=== PATIENT | female | born 1945 | race Caucasian/White ===

== ENCOUNTER → 2016-09-27 | Day surgery (SDC) | payer OTHER, BC ==
[2016-09-09 08:52] VITALS: Ht 167.6 cm; Wt 86.4 kg
[~2016-09-27] VITALS: Ht 167.6 cm; Wt 86.4 kg
[~2016-09-27] MED LIST: 500ML BSS 0.3ML EPI 1:1000PF IRRIG ONE; ACETAMINOPHEN 325 MG TAB PO PRN; AMVISC PLUS 0.8ML SYRINGE INT OCU ONE; ATEN50TA8 PO; ATROPINE SULFATE 0.1 MG/ML 5ML SYR IV PRN; BROM0.07 OPL; BSS FLUSH ONE; CALCTAB5 PO; CHOL20002 PO; COEN1CAP17 PO; EpHEDrine SULFATE INJ 50 MG/ML AMP IV PRN; EpINEphrine INJ 1MG/ML AMP 1 MG/ML AMP ONE; INSU100I SC; INSUINJ4 SQ; LACTATED RINGER'S 1000ML 500 ML IV SCH; LIDOCAINE 3.5% OPH GEL PER APPLICATION CHARGE ONE; LIDOCAINE HCL 1% MPF 2 ML VIAL ONE; LISI20TA3 PO; MAGN250T12 PO; METF-384 PO; MIDAZOLAM HCL 1 MG/ML 2ML VIAL ONE; OCUCOAT 1 ML SOLN IO ONE; OMEG10007 PO; ONDANSETRON INJ 2 MG/ML 2 ML VIAL IV PRN; PARO1TAB27 PO; POVIDONE-IODINE OP SOLN 30 ML BTL ONE; PRED1SUS3 OPL; PROPARACAINE 0.5% OP SOLN PER DROP CHARGE OPR SCH; SIMV20TA2 PO; TOBRAMYCIN/DEXAMETHASONE OPH OINT PER APPLN CHARGE ONE
[2016-09-27] MEDS: PHENYLEPHRINE HCL 2.5% OP SOLN PER DROP CHARGE OPR SCH ×2 (07:38→07:43)
[2016-09-27] MEDS: TROPICAMIDE 1% OP SOLN PER DROP CHARGE OPR SCH ×2 (07:39→07:44)
[2016-09-27] MEDS: CYCLOPENTOLATE HCL 1% OP SOLN PER DROP CHARGE OPR SCH ×2 (07:40→07:45)
[2016-09-27] MEDS: KETOROLAC 0.5% OP SOLN PER DROP CHARGE OPR SCH ×2 (07:41→07:46)
[2016-09-27] MEDS: GATIFLOXACIN OP SOLN PER DROP CHARGE OPR SCH ×2 (07:42→07:52)
--- NOTE | 2016-09-27 08:00 | History & Physical Bridge - [place] ---
H&P Re-Evaluation Bridge Note: I have examined the patient, reviewed the History & Physical and in the interval since the performance of the History & Physical I have noted the following changes of clinical significance: No changes noted
--- NOTE | 2016-09-27 08:46 | Discharge Instructions-SurgCtr ---
Discharge Instructions Visit Reason for Visit: Cataract Right Eye Discharge Discharge Diagnosis / Problem: cataract Discharge Goals Goal(s): Improve function Medications Stopped Medications Name(s): metformin stopped x 2 days. Activity Recommendations Activity Limitations: per Instructions/Follow-up section Anesthesia . Post Anesthesia Instructions: If you have had General Anesthesia or IV Sedation: * Do not drive today. * Resume driving when surgeon permits. * Do not make important decisions or sign legal documents today. * Call surgeon for: 1. Temperature elevations greater than 101 degrees F. 2. Uncontrollable pain. 3. Excessive bleeding. 4. Persistent nausea and vomiting. 5. Medication intolerance (nausea, vomiting or rash). * For nausea and vomiting use only clear liquids such as: tea, soda, bouillon until nausea subsides, then gradually increase diet as tolerated. * If you have any concerns or questions, call your surgeon's office. If physician is unavailable and it is an emergency, call 911 or go to the nearest emergency room. . Instructions / Follow-Up Instructions / Follow-Up ACTIVITY RECOMMENDATIONS: * No strenuous lifting, jogging or running for 4 days * No swimming or yard work for 1 week. * Limited bending is permitted, such as putting on shoes. RETURN TO SCHOOL/WORK: No work until seen by physician in office. MEDICATIONS: Resume previous medications unless instructed otherwise by your surgeon. This includes eye drops for glaucoma. Zymaxid/Gatifloxacin (adair cap) - one drop every 2 hours until bedtime Nevanac/Ilevro/Prolensa/Ketorolac (torres cap) - one drop every 4 hours until bedtime Prednisolone (white/pink cap, SHAKE WELL) - one drop every 2 hours until bedtime Starting tomorrow - all 3 drops every 4 hours until seen in the office Optive drops - as needed for discomfort SPECIAL CARE INSTRUCTIONS: * Wear eyeshield when sleeping, for four nights. * You may wear your own glasses or sunglasses while awake. * You may read or watch TV * You may shower and wash your face, but be gentle around the eye and pat dry. * Blurry vision and mild irritation are normal. * Call office if pain is more severe or vision becomes dark at . FOLLOW UP VISIT: Follow-up with Dr Bui tomorrow. Diet Recommendations Home Diet: resume previous diet Procedures Procedures Performed: Right Cataract Phacoemulsification With Intraocular Lens Implant Pending Studies Studies pending at discharge: no Medical Emergencies . Who to Call and When: Medical Emergencies: If at any time you feel your situation is an emergency, please call 911 immediately. . Non-Emergent Contact Non-Emergency issues call your: He[facility] Se[facility] Pounder . . "Provider Documentation" section prepared by Atif Bui.
--- NOTE | 2016-09-27 08:46 | [facility] Operative Report ---
Operative Report 1. PREOPERATIVE DIAGNOSIS: Cataract of the right eye. 2. POSTOPERATIVE DIAGNOSIS: Same. 3. PROCEDURE: Phacoemulsification with intraocular lens implantation of the right eye. SURGEON: Dr. Atif Bui. ANESTHESIA: Topical Lidocaine gel, 1% Non- Preserved intracameral Lidocaine, and monitored intravenous sedation. INDICATIONS FOR THE PROCEDURE: The patient is a 71 - year-old female with a history of cataract of the right eye causing significant visual impairment. The details of the proposed procedure were explained to the patient who asked appropriate questions and following discussion of all risks, benefits and alternatives agreed to have the procedure done. 4. OPERATION AND FINDINGS: DESCRIPTION OF PROCEDURE: After informed consent was obtained, the patient was brought to the Operating Room at the [facility]. The patient was placed in a supine position and then the right eye was prepped and draped in the usual sterile fashion for intraocular surgery. A drop of topical Lidocaine gel was placed in the operative eye. A wire lid speculum was then placed in the fornices. A corneal paracentesis was then created temporally. The Non-Preserved Lidocaine was then instilled into the anterior chamber. The anterior chamber was then pressurized with viscoelastic. A 2.0 mm clear corneal incision was then created temporally. A cystotome was inserted into the anterior chamber and used to create a tear in the anterior lens capsule. This capsular tear was then used to create a small flap and the flap was dragged in a counterclockwise direction in order to create a continuous curvilinear capsulorrhexis. Hydrodissection was accomplished with balanced salt solution. Phacoemulsification of the lens nucleus was then performed in a standard [id number]-bespfzd technique. The phaco time was 24 seconds with an average power of 7 %. The remaining cortical material was removed using irrigation aspiration. The capsular bag was then filled with viscoelastic. A [employer]ch [employer] Lomb MI60L +22.0 diopters lens was then loaded into the injector and injected into the capsular bag. The remaining viscoelastic was removed with the irrigation aspiration handpiece. The wound was hydrated and then checked and found to be watertight. The intraocular pressure was checked and found to be adequate. The wire lid speculum was removed and the patient's face was cleaned and dried. TobraDex ointment was placed in the inferior fornix. The patient was discharged to the Recovery Room having tolerated the procedure well. There were no complications. The patient will be seen tomorrow in the office for follow-up. I attest to the content of the Intraoperative Record and any orders documented therein. Any exceptions are noted below.
[2016-09-27 08:55] VITALS: TEMP 36.3
[2016-09-27 09:12] VITALS: BP 135/81; PULSE 58; O2SAT 96
--- NOTE | 2016-09-27 09:29 | Anesthesia Progress Nt - [facility] ---
Anesthesia Post Op Note Date & Time Sep 27, 2016 at 09:29 Vital Signs Pain Intensity: 0 Vital Signs Past 12 Hours Date Time Temp Pulse Resp B/P Pulse Ox O2 Delivery O2 Flow Rate FiO2 09/27/16 09:12 58 20 135/81 96 Room Air 09/27/16 08:55 36.3 57 20 138/74 97 Room Air 09/27/16 07:26 36.6 66 16 134/73 98 Room Air Notes Mental Status: alert / awake / arousable, participated in evaluation Pt Amnestic to Procedure: Yes Nausea / Vomiting: adequately controlled Pain: adequately controlled Airway Patency, RR, SpO2: stable & adequate BP & HR: stable & adequate Hydration State: stable & adequate Anesthetic Complications: no major complications apparent
== END | disposition home or self-care (01) ==
LOC: X.SURG 07:18
PROVIDERS: ATTEND Ophthalmology
DX: H26.9 Unspecified cataract (principal); I10 Essential (primary) hypertension; E11.9 Type 2 diabetes mellitus without complications; Z68.30 Body mass index [BMI] 30.0-30.9, adult; Z98.42 Cataract extraction status, left eye; F41.9 Anxiety disorder, unspecified; Z98.890 Other specified postprocedural states; Z83.3 Family history of diabetes mellitus; Z83.79 Family history of other diseases of the digestive system; Z83.49 Family history of other endocrine, nutritional and metabolic diseases

== ENCOUNTER → 2016-10-10 | Outpatient (CLI) | payer OTHER, BC ==
[~2016-10-10] MED LIST changes: -500ML BSS 0.3ML EPI 1:1000PF IRRIG ONE; -ACETAMINOPHEN 325 MG TAB PO PRN; -AMVISC PLUS 0.8ML SYRINGE INT OCU ONE; -ATROPINE SULFATE 0.1 MG/ML 5ML SYR IV PRN; -BSS FLUSH ONE; -EpHEDrine SULFATE INJ 50 MG/ML AMP IV PRN; -EpINEphrine INJ 1MG/ML AMP 1 MG/ML AMP ONE; -LACTATED RINGER'S 1000ML 500 ML IV SCH; -LIDOCAINE 3.5% OPH GEL PER APPLICATION CHARGE ONE; -LIDOCAINE HCL 1% MPF 2 ML VIAL ONE; -MIDAZOLAM HCL 1 MG/ML 2ML VIAL ONE; -OCUCOAT 1 ML SOLN IO ONE; -ONDANSETRON INJ 2 MG/ML 2 ML VIAL IV PRN; -POVIDONE-IODINE OP SOLN 30 ML BTL ONE; -PROPARACAINE 0.5% OP SOLN PER DROP CHARGE OPR SCH; -TOBRAMYCIN/DEXAMETHASONE OPH OINT PER APPLN CHARGE ONE
== END | disposition home or self-care (01) ==
LOC: C.RDSM 16:15
PROVIDERS: ATTEND Family Medicine
DX: M79.644 Pain in right finger(s) (principal)

== ENCOUNTER → 2016-11-22 | Outpatient (CLI) | payer OTHER, BC ==
--- NOTE | 2016-11-23 12:37 | MAMMOGRAPHY REPORT ---
BILATERAL DIGITAL SCREENING MAMMOGRAM WITH CAD: 11/22/2016 CLINICAL HISTORY: Routine screening. Patient has no complaints. TECHNIQUE: Bilateral CC, MLO and repeat right MLO views were obtained. Current study was also evalu ated with a Computer Aided Detection (CAD) system. COMPARISON: Comparison is made to exams dated: 11/19/2015 mammogram, 11/18/2014 mammogram, 09/30/2013 m ammogram, 09/13/2012 mammogram, 09/12/2011 mammogram, and 09/10/2010 mammogram - [facility]. BREAST COMPOSITION: The tissue of both breasts is heterogeneously dense, which may obscure small ma sses. FINDINGS: The biopsy marker in the far posterior and lateral right breast is not visualized on these images. There is a stable leonardo-shaped biopsy marker in the upper outer middle one third of the left breast. There are benign coarse calcifications and grouped benign-appearing microcalcifications, s table bilaterally. Mild vascular calcification. No suspicious new mass, architectural distortion o r cluster of microcalcifications is seen. IMPRESSION: ACR BI-RADS CATEGORY 1: NEGATIVE There is no mammographic evidence of malignancy. A 1 year screening mammogram is recommended. The p atient will receive written notification of the results. Approximately 10% of breast cancers are not detected with mammography. A negative mammographic repor t should not delay biopsy if a clinically suggestive mass is present. Rhea Arias M.D. ay/:11/22/2016 16:35:06 Jig Worker: Mendy TAFOYA)(Nieves), [facility] letter sent: Normal 1/2 BI-RADS Code: ACR BI-RADS Category 1: Negative
== END | disposition home or self-care (01) ==
LOC: C.MAMM 11:22
PROVIDERS: ATTEND Obstetrics & Gynecology
DX: Z12.31 Encounter for screening mammogram for malignant neoplasm of breast (principal)

== ENCOUNTER → 2016-12-21 | Outpatient (CLI) | payer OTHER, BC ==
[2016-12-22 06:13] LABS: ESTIMATED AVERAGE GLUCOSE 151 mg/dl; HA1C FLAG Normal (Normal)
== END | disposition home or self-care (01) ==
LOC: C.LAB1850 14:18
PROVIDERS: ATTEND Physician Assistant
DX: E11.9 Type 2 diabetes mellitus without complications (principal)

== ENCOUNTER → 2017-03-24 | Outpatient (CLI) | payer OTHER, BC ==
[2017-03-24 12:17] LABS: ALT/SGPT 24 U/L (12-78); BLOOD UREA NITROGEN 12 mg/dl (7-18); BUN/CREATININE RATIO 17.1 (10-20); CALCIUM 9.2 mg/dl (8.5-10.1); CARBON DIOXIDE 26 mmol/L (21-32); CHLORIDE 106 mmol/L (98-107); CHOLESTEROL 124 mg/dl (0-200); CREATININE 0.69 mg/dl (0.60-1.20); GLUCOSE 152 mg/dl (70-99); POTASSIUM 4.4 mmol/L (3.5-5.1); SODIUM 140 mmol/L (136-145)
[2017-03-24 12:28] LABS: ALB/GLOB RATIO 0.9 (0.9-2); ALKALINE PHOSPHATASE 79 U/L (45-117); AST/SGOT 18 U/L (15-37); CHOLESTEROL/HDL RATIO 2.2; HDL CHOLESTEROL 56 mg/dl; LDL CHOLESTEROL CALCULATED 47 mg/dl; TRIGLYCERIDES 104 mg/dl (0-150); VERY LOW DENSITY LIPOPROT CALC 21 mg/dl
[2017-03-24 12:47] LABS: ESTIMATED AVERAGE GLUCOSE 146 mg/dl; HA1C FLAG Normal (Normal)
== END | disposition home or self-care (01) ==
LOC: C.LAB1850 09:56
PROVIDERS: ATTEND Internal Medicine
DX: Z00.00 Encounter for general adult medical examination without abnormal findings (principal); I10 Essential (primary) hypertension; E11.9 Type 2 diabetes mellitus without complications; E78.5 Hyperlipidemia, unspecified; M85.80 Other specified disorders of bone density and structure, unspecified site; E55.9 Vitamin D deficiency, unspecified; E66.9 Obesity, unspecified

== ENCOUNTER → 2017-06-28 | Outpatient (CLI) | payer OTHER, BC | LOC: C.LAB1850 15:19 | PROVIDERS: ATTEND Physician Assistant | DX: E11.9 Type 2 diabetes mellitus without complications (principal) ==

== ENCOUNTER → 2017-06-30 | Outpatient (CLI) | payer OTHER, BC ==
[2017-06-30 17:48] LABS: RATIO 12.8 mcg/mg (0-30.0)
== END | disposition home or self-care (01) ==
LOC: C.LAB1850 15:23
PROVIDERS: ATTEND Nurse Practitioner Adult Health
DX: E11.9 Type 2 diabetes mellitus without complications (principal)

== ENCOUNTER → 2017-10-13 | Outpatient (CLI) | payer OTHER, BC ==
[2017-10-13 13:54] LABS: ESTIMATED AVERAGE GLUCOSE 137 mg/dl; HA1C FLAG Normal (Normal)
[2017-10-13 13:54] LABS: HEMOGLOBIN A1C 6.4 % (4.5-5.6)
== END | disposition home or self-care (01) ==
LOC: C.LABBC 11:33
DX: E11.9 Type 2 diabetes mellitus without complications (principal)

== ENCOUNTER → 2017-11-02 | Outpatient (CLI) | payer OTHER, BC | END | disposition home or self-care (01) | LOC: C.MAMM 14:16 | PROVIDERS: ATTEND Internal Medicine | DX: M85.88 Other specified disorders of bone density and structure, other site (principal) ==

== ENCOUNTER → 2017-11-23 | Outpatient (CLI) | payer OTHER, BC ==
--- NOTE | 2017-11-23 15:19 | MAMMOGRAPHY REPORT ---
BILATERAL DIGITAL SCREENING MAMMOGRAM TOMOSYNTHESIS WITH CAD: 11/23/2017 CLINICAL HISTORY: Routine screening. TECHNIQUE: Breast tomosynthesis in addition to standard 2D mammography was performed. Current study was also evaluated with a Computer Aided Detection (CAD) system. COMPARISON: Comparison is made to exams dated: 11/22/2016 mammogram, 11/19/2015 mammogram, 11/18/2014 m ammogram, 09/13/2013 mammogram, 09/13/2012 mammogram, and 09/12/2011 mammogram - [facility]. BREAST COMPOSITION: The tissue of both breasts is heterogeneously dense, which may obscure small mas ses. FINDINGS: No suspicious masses, calcifications, or areas of architectural distortion are noted in ei ther breast. There has been no significant interval change compared to prior exams. Bilateral asymme tries and scattered bilateral benign-appearing calcifications are not significantly changed. A biops y marker clip is again noted overlying the right pectoralis muscle on the MLO view. IMPRESSION: ACR BI-RADS CATEGORY 2: BENIGN There is no mammographic evidence of malignancy. A 1 year screening mammogram is recommended. The pa tient will receive written notification of the results. Approximately 10% of breast cancers are not detected with mammography. A negative mammographic report should not delay biopsy if a clinically suggestive mass is present. Yarely Beaver M.D. ah/:11/23/2017 12:46:30 Metrologist: Jamshid TAFOYA)(Nieves), [facility] letter sent: Normal 1/2 BI-RADS Code: ACR BI-RADS Category 2: Benign
== END | disposition home or self-care (01) ==
LOC: C.MAMM 10:53
PROVIDERS: ATTEND Obstetrics & Gynecology
DX: Z12.31 Encounter for screening mammogram for malignant neoplasm of breast (principal)

== ENCOUNTER 2024-10-11 06:36 | Observation (INO) ==
--- NOTE | 2024-09-03 10:38 | PAT Medication Instructions ---
Medication Instructions Date of Service September 03, 2024 Home Medications Medication Instructions Recorded BD Ultra-Fine Mini Pen Needle 31 #400 ea 09/22/23 gauge x 3/16" (pen needle, diabetic) simvastatin 20 mg tablet 20 mg PO QPM #90 tabs 12/27/23 tirzepatide 7.5 mg/0.5 mL 7.5 mg (0.5 mL) subcut Q7D #6 mL 04/26/24 subcutaneous pen injector (Mounjaro) blood sugar diagnostic (Contour #100 ea 05/02/24 Next Test Strips) lancets (Microlet Lancet) #100 ea 05/02/24 insulin glargine 100 unit/mL (3 36 unit (0.36 mL) subcut HS 90 05/03/24 mL) subcutaneous pen (Lantus days #45 mL Solostar U-100 Insulin) calcium 600 mg (as carbonate)-vitamin D3 5 mcg (200 unit) tablet 1 tab PO QAM cholecalciferol (vitamin D3) 125 mcg (5,000 unit) tablet 5,000 units PO QAM coenzyme Q10 100 mg capsule 100 mg PO QAM krill oil 500 mg capsule 500 mg PO QAM docusate sodium 100 mg capsule (Colace) 100 mg PO BID PRN simvastatin 20 mg tablet 20 mg PO QPM fluocinonide 0.05 % topical cream 1 applic topical DAILY PRN tirzepatide 7.5 mg/0.5 mL subcutaneous pen injector (Mignonro) 7.5 mg (0.5 mL) subcut Q7D insulin glargine 100 unit/mL (3 mL) subcutaneous pen (Lantus Solostar U-100 Insulin) 36 unit (0.36 mL) subcut HS antiarthritic combination no.2 900 mg tablet (glucosamine-chondroitin) 900 mg PO QAM Turmeric 1,000 mg PO QAM alendronate 70 mg tablet (Fosamax) 70 mg PO WK ascorbic acid (vitamin C) 500 mg tablet (Vitamin C) 1,000 mg PO QAM atenolol 50 mg tablet 50 mg PO HS cyanocobalamin (vitamin B-12) 1,000 mcg tablet (Vitamin B-12) 1,000 mcg PO QAM insulin lispro 100 unit/mL subcutaneous pen (Humalog KwikPen (U-100) Insulin) 14 - 18 unit subcut QAM lisinopril 20 mg tablet 20 mg PO QAM oxybutynin chloride 5 mg tablet,extended release 24 hr 5 mg PO QAM paroxetine HCl 20 mg tablet 20 mg PO HS STOP 7 days before surgery tirzepatide 7.5 mg/0.5 mL subcutaneous pen injector (Mounjaro) 7.5 mg (0.5 mL) subcut Q7D STOP taking 2 weeks before surgery (or as soon as possible if surgery is within 2 weeks) coenzyme Q10 100 mg capsule 100 mg PO QAM krill oil 500 mg capsule 500 mg PO QAM antiarthritic combination no.2 900 mg tablet (glucosamine-chondroitin) 900 mg PO QAM Turmeric 1,000 mg PO QAM STOP taking 24 hours before surgery fluocinonide 0.05 % topical cream 1 applic topical DAILY PRN DO NOT take the morning of surgery calcium 600 mg (as carbonate)-vitamin D3 5 mcg (200 unit) tablet 1 tab PO QAM cholecalciferol (vitamin D3) 125 mcg (5,000 unit) tablet 5,000 units PO QAM docusate sodium 100 mg capsule (Colace) 100 mg PO BID PRN alendronate 70 mg tablet (Fosamax) 70 mg PO WK ascorbic acid (vitamin C) 500 mg tablet (Vitamin C) 1,000 mg PO QAM cyanocobalamin (vitamin B-12) 1,000 mcg tablet (Vitamin B-12) 1,000 mcg PO QAM insulin lispro 100 unit/mL subcutaneous pen (Humalog KwikPen (U-100) Insulin) 14 - 18 unit subcut QAM lisinopril 20 mg tablet 20 mg PO QAM oxybutynin chloride 5 mg tablet,extended release 24 hr 5 mg PO QAM Take evening before surgery docusate sodium 100 mg capsule (Colace) 100 mg PO BID PRN(if needed) simvastatin 20 mg tablet 20 mg PO QPM insulin glargine 100 unit/mL (3 mL) subcutaneous pen (Lantus Solostar U-100 Insulin) 36 unit (0.36 mL) subcut HS atenolol 50 mg tablet 50 mg PO HS paroxetine HCl 20 mg tablet 20 mg PO HS Other Notes NOTHING TO EAT OR DRINK AFTER MIDNIGHT. If you have any questions please call us at [phone] or [phone] or [phone] or [phone]
--- NOTE | 2024-09-10 11:33 | Anesthesiology Consultation ---
Date of Service September 10, 2024 Assessment & Plan (1) Encounter for pre-operative examination: Chart Review Chart Review: Acceptable Risk for Surgery and Patient seen in Pre Admission Testing - Check BSG AM DOS Dexcom monitor to abdominal area (surgeon's office made aware) - Mounjaro instructions: Patient takes on (Sundays). Patient informed at PAT visit to stop 7 days prior to surgery- voiced understanding. Patient advised to discuss with prescriber. Last dose of Mounjaro scheduled for 09/29/24- will be off Mounjaro x 12 days by DOS on 10/11/24 - Patient is NOT an ideal OPJ candidate (currently 23 hour obs) Per PAT appt on 09/10/24, no recent illness/disease exposures, illness related symptoms, or recent illness/disease positive tests. Will leave to surgeon's discretion if preop Covid testing needed Teaching & Discussion Pre-Anesthesia Teaching/Discussion Notes: Instructed NPO after midnight before surgery,except medications with 15 cc of water. Medication instructions provided according to the PAT guidelines. History Surgery Operation Date: 10/11/24 10:55 Proposed Procedures p Left Total Knee Arthroplasty - Pierce Douglas, Height/Weight Height: 5 ft 6 in Weight: 84.2 kg Allergies Allergy/AdvReac Type Severity Reaction Status Date / Time acarbose Allergy Intermediate Hives Verified 09/02/24 15:37 niacin Allergy Intermediate HIVES Verified 09/02/24 15:37 adhesive Allergy Mild ITCHING/ARNULFO Verified 09/02/24 15:37 H pollen extracts Allergy Mild sneezing, Verified 09/02/24 15:37 watery eyes Medications Home Medications Medication Instructions Recorded Confirmed Last Taken calcium 600 mg (as 1 tab PO QAM 06/05/19 09/02/24 06/03/23 carbonate)-vitamin D3 5 mcg (200 unit) tablet cholecalciferol (vitamin D3) 125 5,000 units PO QAM 06/05/19 09/02/24 06/03/23 mcg (5,000 unit) tablet coenzyme Q10 100 mg capsule 100 mg PO QAM 06/05/19 09/02/24 06/03/23 krill oil 500 mg capsule 500 mg PO QAM 06/05/19 09/02/24 06/03/23 blood-glucose meter,continuous #1 ea 03/18/21 07/05/24 Unknown (Dexcom G6 Theatrical Performer) blood-glucose sensor (Dexcom G6 #3 ea 03/18/21 07/05/24 Unknown Sensor device) blood-glucose transmitter (Dexcom #1 ea 03/18/21 07/05/24 Unknown G6 Transmitter device) docusate sodium 100 mg capsule 100 mg PO BID PRN Constipation 06/08/23 09/02/24 Unknown (Colace) BD Ultra-Fine Mini Pen Needle 31 #400 ea 09/22/23 07/05/24 Unknown gauge x 3/16" (pen needle, diabetic) simvastatin 20 mg tablet 20 mg PO QPM #90 tabs 12/27/23 09/02/24 Unknown fluocinonide 0.05 % topical cream 1 applic topical DAILY PRN Rash 02/09/24 09/02/24 Unknown tirzepatide 7.5 mg/0.5 mL 7.5 mg (0.5 mL) subcut Q7D #6 mL 04/26/24 09/02/24 09/01/24 subcutaneous pen injector (Luz) blood sugar diagnostic (Contour #100 ea 05/02/24 07/05/24 Unknown Next Test Strips) lancets (Microlet Lancet) #100 ea 05/02/24 07/05/24 Unknown insulin glargine 100 unit/mL (3 36 unit (0.36 mL) subcut HS 90 05/03/24 09/02/24 Unknown mL) subcutaneous pen (Lantus days #45 mL Solostar U-100 Insulin) antiarthritic combination no.2 900 900 mg PO QAM 06/04/24 09/02/24 Unknown mg tablet (glucosamine-chondroitin) Turmeric 1,000 mg PO QAM 09/02/24 09/02/24 Unknown ascorbic acid (vitamin C) 500 mg 1,000 mg PO QAM 09/02/24 09/02/24 Unknown tablet (Vitamin C) atenolol 50 mg tablet 50 mg PO HS 09/02/24 09/02/24 Unknown cyanocobalamin (vitamin B-12) 1,000 mcg PO QAM 09/02/24 09/02/24 Unknown 1,000 mcg tablet (Vitamin B-12) insulin lispro 100 unit/mL 14 - 18 unit subcut QAM 09/02/24 09/02/24 Unknown subcutaneous pen (Humalog KwikPen (U-100) Insulin) lisinopril 20 mg tablet 20 mg PO QPM 09/02/24 09/10/24 Unknown oxybutynin chloride 5 mg 5 mg PO QAM 09/02/24 09/02/24 Unknown tablet,extended release 24 hr paroxetine HCl 20 mg tablet 20 mg PO HS 09/02/24 09/02/24 Unknown alendronate 70 mg tablet (Fosamax) 70 mg PO WK #12 tabs 09/06/24 Unknown Past Medical History Medical History Agoraphobia without panic disorder well controlled with Paxil Cerebral vascular disease Chronic small vessel disease per 2022 work up and neuro vascular evaluation - follows with neuro PRN; no definite CVA - on ASA Diabetes mellitus, type [address]- rotated around abdominal area Diabetic peripheral neuropathy Dyslipidemia patient states statin more so due to diabetes Hypertension patient states lisinopril more for diabetes Osteoarthritis Osteopenia Overactive bladder Sleep apnea cpap Temporomandibular joint disorder not a current issue, no bite block no recent clicking, no locking Exercise / Class Metabolic Activity III < 4 Walking/Shop/Light housework (no chest pain or SOB with flat surface ambulation ) Past Family History Family History Father Seasonal allergies Heart disease Myocardial infarction Mother Liver disease Diabetes Osteoporosis Arthritis Hyperlipidemia Hypothyroidism Hypertension Obesity Sister Arthritis Brother Diabetes Peripheral vascular disease Daughter Family history of reaction to anesthesia vomiting and confusion Other Gestational diabetes Denies family history of Ovarian cancer Prostate cancer Breast cancer Colorectal cancer Past Surgical History Surgical History H/O hand surgery incision tendon sheath of a finger History of bilateral cataract extraction History of breast biopsy benign History of carpal tunnel release of both wrists History of knee surgery bilateral knees--meniscus repair History of laparoscopic appendectomy (08/23/22) Laparoscopic Appendectomy(Not Applicable) - Juan Harrington DO History of tooth extraction partial upper Hx of colonoscopy Status post trigger finger release x3 Past Anesthesia History No Hx of Anesthesia Complications and No Family Hx of Anesthesia Complications (with exception to daughter - PONV x 2 days ) History of PONV No Hx of PONV and No Hx of Motion Sickness Social History Smoking Status: Never smoker Do You Dip or Chew Tobacco: No Hx Alcohol Use: No Hx Substance Use: No substance use type: does not use Review of Systems Patient denies chest pain, shortness of breath, dyspnea on exertion, reflux, cough, wheezing, palpitations. No hx of seizures, stroke, ME. No hx of blood clots or blood transfusions Physical Exam Vital Signs VITALS BP 147/74 P 73 TEMP 98.0 SP02 97% RESP 16 Constitutional no acute distress ENMT Mouth: + small oral opening; no TMJ clicking Thyromental Distance: < 3.5 Finger Breadths (3.0) Mallampati Class: III Top partial denture Neck + limited neck extension (mild) Respiratory normal respiratory effort; no respiratory distress Auscultation: lungs clear to auscultation bilaterally; no wheezes Cardiovascular Rate/Rhythm: regular rate and regular rhythm Heart Sounds: no murmur Vessels: no carotid bruit Musculoskeletal Spine: no pain with cervical ROM Extremities: extremities normal to inspection Psychiatric Orientation: alert Lab Results Anesthesia Preop Results Results Anesthesia Widget: WBC 7.39 K/ul (4.8-10.8) 09/10/24 Hgb 14.2 g/dl (12.0-16.0) 09/10/24 Hct 43.1 % (37.0-47.0) 09/10/24 Plt 223 K/uL (130-400) 09/10/24 Na 140 mmol/L (136-145) 09/10/24 K 4.0 mmol/L (3.5-5.1) 09/10/24 Cl 102 mmol/L (98-107) 09/10/24 CO2 30 mmol/L (21-32) 09/10/24 BUN 13 mg/dl (6-23) 09/10/24 Creat 0.69 mg/dl (0.6-1.2) 09/10/24 Glucose Level 124 mg/dl (70-99(Fasting)) H 09/10/24 PT 11.0 Seconds (9.0-12.0) 09/10/24 PTT 25 Seconds (21-31) 09/10/24 INR 1.0 (0.9-1.1) 09/10/24 HA1c 6.2 % (4.5-5.6) H 09/10/24 Blood Type A Positive 09/10/24 Antibody Screen NEGATIVE 09/10/24 Testing Electrocardiogram Date: 09/10/24 Findings: + NSR @ (70bpm) Normal EKG per cardio Chest X-Ray Date: 07/05/24 Findings: + NAD FINDINGS: PA and lateral chest radiographs are correlated with chest CT dated 06/03/2023. The cardiomediastinal silhouette is unremarkable noting atherosclerotic calcification of the thoracic aorta. Chronic interstitial thickening is similar to previous. There is bibasilar scarring/atelectasis. No airspace consolidation or pleural effusion is identified. There is no pneumothorax. The skeletal structures are osteopenic. There are chronic/healed right-sided rib fractures. Degenerative change is noted in the shoulders and spine Echocardiogram Date: 06/05/23 EF: 50-54% LV Function: normal RWMA: + none ((by limited analysis- all LV segments are not well visualized) ) Other Findings: + diastolic dysfunction (Grade I ) Valvular Disease: + no significant valvular disease ((although heart valves not well visualized)) RV cavity size is normal. RVSP is qualitatively normal Other Testing MRI of the Brain 06/06/23= Moderate generalized age related cerebral parenchymal atrophy and findings most consistent with moderate chronic small vessel white matter ischemia changes. No additional intracranial abnormalities identified. Vascular Duplex Carotid Bilaterally 06/05/23= <50% stenosis to bilateral ICAs. Antegrade flow to both vertebral arteries
[~2024-10-11 06:36] MED LIST changes: -ATEN50TA8 PO; -BROM0.07 OPL; +BUPIVACAINE 0.25% PF 30 ML VIAL ONE; +BUPIVACAINE 0.5 % 5 MG/1 ML PF 10ML VIAL ONE; -CALCTAB5 PO; -CHOL20002 PO; -COEN1CAP17 PO; +DEXAMETHASONE SOD INJ 4 MG/ML VIAL ONE; +EPINEPHrine INJ 1 MG/ML AMP ONE; -INSU100I SC; -INSUINJ4 SQ; -LISI20TA3 PO; -MAGN250T12 PO; -METF-384 PO; -OMEG10007 PO; -PARO1TAB27 PO; -PRED1SUS3 OPL; -SIMV20TA2 PO
--- NOTE | 2024-10-11 06:38 | History & Physical Bridge Note ---
Date of Service October 11, 2024 History & Physical Bridge Note I have examined the patient, reviewed the History & Physical and in the interval since the performance of the History & Physical I have noted the following changes of clinical significance: no changes noted
[2024-10-11] MEDS ORDERED: MIDAZOLAM HCL 1 MG/ML 2ML VIAL ONE (06:53)
[2024-10-11] MEDS ORDERED: fentaNYL citrate PF 100 MCG/2 ML VIAL ONE (06:53)
[2024-10-11] MEDS ORDERED: ONDANSETRON INJ 2 MG/ML 2 ML VIAL ONE (06:53)
[2024-10-11] MEDS ORDERED: PROPOFOL IV EMULSION 10 MG/ML 20 ML VIAL IV ONE ×2 (06:53→08:59)
[2024-10-11] MEDS ORDERED: PHENYLEPHRINE 100MCG/ML 5ML SYR ONE (06:59)
[2024-10-11] MEDS: dexAMETHasone**PF** 10 MG/ML VIAL IV SCH (07:15)
[2024-10-11] MEDS: LR 500ML BOLUS, THEN 15ML/HR IV SCH (07:15)
[2024-10-11] MEDS: GABAPENTIN 300 MG CAP PO SCH (07:15)
[2024-10-11] MEDS: FAMOTIDINE 20 MG TAB PO SCH (07:15)
[2024-10-11] MEDS: LR 60ML/HR IV SCH (07:15)
[2024-10-11] MEDS: ACETAMINOPHEN 500 MG TAB PO SCH ×2 (07:15→14:07)
--- NOTE | 2024-10-11 07:15 | History & Physical Report ---
Date of Service October 11, 2024 Assessment & Plan (1) Osteoarthritis of left knee: We will proceed with a left total knee arthroplasty. Postoperatively she will be started on aspirin for DVT prophylaxis and kept overnight in the hospital for postop medical management. She plans to use energy physical therapy upon discharge. History of Present Illness Chief Complaint: Osteoarthritis of the left knee Primary Care Provider: Patrica Delcid MD Olga is a pleasant 79-year-old female who has been dealing with chronic increasing left knee pain. X-rays and clinical exam have been diagnostic for advanced arthritis of left knee. After failed conservative treatment, she has elected proceed with a left total knee arthroplasty.. Allergies Allergy/AdvReac Type Severity Reaction Status Date / Time acarbose Allergy Intermediate Hives Verified 10/11/24 06:49 niacin Allergy Intermediate HIVES Verified 10/11/24 06:49 adhesive Allergy Mild ITCHING/ARNULFO Verified 10/11/24 06:49 H pollen extracts Allergy Mild sneezing, Verified 10/11/24 06:49 watery eyes Home Medications Medication Instructions Recorded Confirmed Type calcium 600 mg (as 1 tab PO QAM 06/05/19 10/11/24 History carbonate)-vitamin D3 5 mcg (200 unit) tablet cholecalciferol (vitamin D3) 125 5,000 units PO QAM 06/05/19 10/11/24 History mcg (5,000 unit) tablet coenzyme Q10 100 mg capsule 100 mg PO QAM 06/05/19 10/11/24 History krill oil 500 mg capsule 500 mg PO QAM 06/05/19 10/11/24 History blood-glucose meter,continuous #1 ea 03/18/21 07/05/24 History (Dexcom G6 Awning Craftsman) blood-glucose sensor (Dexcom G6 #3 ea 03/18/21 07/05/24 History Sensor device) blood-glucose transmitter (Dexcom #1 ea 03/18/21 07/05/24 History G6 Transmitter device) docusate sodium 100 mg capsule 100 mg PO BID PRN Constipation 06/08/23 10/11/24 History (Colace) BD Ultra-Fine Mini Pen Needle 31 #400 ea 09/22/23 07/05/24 Rx gauge x 3/16" (pen needle, diabetic) simvastatin 20 mg tablet 20 mg PO QPM #90 tabs 12/27/23 10/11/24 Rx fluocinonide 0.05 % topical cream 1 applic topical DAILY PRN Rash 02/09/24 10/11/24 History tirzepatide 7.5 mg/0.5 mL 7.5 mg (0.5 mL) subcut Q7D #6 mL 04/26/24 10/11/24 Rx subcutaneous pen injector (Luz) blood sugar diagnostic (Contour #100 ea 05/02/24 07/05/24 Rx Next Test Strips) lancets (Microlet Lancet) #100 ea 05/02/24 07/05/24 Rx insulin glargine 100 unit/mL (3 36 unit (0.36 mL) subcut HS 90 05/03/24 10/11/24 Rx mL) subcutaneous pen (Lantus days #45 mL Solostar U-100 Insulin) antiarthritic combination no.2 900 900 mg PO QAM 06/04/24 10/11/24 History mg tablet (glucosamine-chondroitin) ascorbic acid (vitamin C) 500 mg 1,000 mg PO QAM 09/02/24 10/11/24 History tablet (Vitamin C) atenolol 50 mg tablet 50 mg PO HS 09/02/24 10/11/24 History cyanocobalamin (vitamin B-12) 1,000 mcg PO QAM 09/02/24 10/11/24 History 1,000 mcg tablet (Vitamin B-12) insulin lispro 100 unit/mL 14 - 18 unit subcut QAM 09/02/24 10/11/24 History subcutaneous pen (Humalog KwikPen (U-100) Insulin) lisinopril 20 mg tablet 20 mg PO QPM 09/02/24 10/11/24 History oxybutynin chloride 5 mg 5 mg PO QAM 09/02/24 10/11/24 History tablet,extended release 24 hr paroxetine HCl 20 mg tablet (Paxil) 20 mg PO HS 09/02/24 10/11/24 History alendronate 70 mg tablet (Fosamax) 70 mg PO WK #12 tabs 09/06/24 10/11/24 Rx Past Med/Surg History Problem List (Updated 10/11/24 @ 07:16 by Pierce Douglas DO) Osteoarthritis of left knee Obstructive sleep apnea (Chronic) treated with CPAP Overactive bladder (Chronic) Trigger finger of left hand Osteoarthritis of knees, bilateral Mild nonproliferative retinopathy due to secondary diabetes Obesity (BMI 30-39.9) Dyslipidemia (Chronic) Hearing loss (Chronic) Hypertension (Chronic) Insomnia (Chronic) Osteopenia (Chronic) Alendronate started 11/2023 Seborrheic dermatitis (Chronic) Type 2 diabetes mellitus (Chronic) Vitamin D deficiency (Chronic) Medical History Agoraphobia without panic disorder well controlled with Paxil Cerebral vascular disease Chronic small vessel disease per 2022 work up and neuro vascular evaluation - follows with neuro PRN; no definite CVA - on ASA Diabetic peripheral neuropathy Osteopenia Osteoarthritis Overactive bladder Diabetes mellitus, type [address]- rotated around abdominal area Temporomandibular joint disorder not a current issue, no bite block no recent clicking, no locking Dyslipidemia patient states statin more so due to diabetes Hypertension patient states lisinopril more for diabetes Sleep apnea cpap Surgical History History of breast biopsy benign Status post trigger finger release x3 History of carpal tunnel release of both wrists History of tooth extraction partial upper History of bilateral cataract extraction History of laparoscopic appendectomy (08/23/22) Laparoscopic Appendectomy(Not Applicable) - Juan Harrington DO H/O hand surgery incision tendon sheath of a finger Hx of colonoscopy History of knee surgery bilateral knees--meniscus repair Family History Father Seasonal allergies Heart disease Myocardial infarction Mother Liver disease Diabetes Osteoporosis Arthritis Hyperlipidemia Hypothyroidism Hypertension Obesity Sister Arthritis Brother Diabetes Peripheral vascular disease Daughter Family history of reaction to anesthesia vomiting and confusion Other Gestational diabetes Denies family history of Ovarian cancer Prostate cancer Breast cancer Colorectal cancer Social History Smoking Status: Never smoker Second Hand Exposure: No; Do You Dip or Chew Tobacco: No; Tobacco Cessation Education Requested by Patient: No Hx Alcohol Use: No Hx Substance Use: No Preferred Language: Albanian Communication Ability: Effective Visual Impairment: No Limitations Hearing Ability: Hard of Hearing Compress Machine Operator Required: No Beliefs That Will Affect Care: None marital status: Current Living Situation: Spouse current occupational status: retired 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 Physical Exam On physical exam of the left knee, she has a slight varus deformity. Tenderness palpation of the distal medial femoral condyle.. Constitutional WD/WN, vitals as above Eyes PERRL, conjunctivae normal, anicteric sclerae ENMT external ear and nose normal, oropharynx normal Neck trachea midline, no thyromegaly Respiratory normal respiratory effort Cardiovascular RRR, no murmur, no edema Gastrointestinal (Abdomen) normal bowel sounds, soft, nontender, no hepatosplenomegaly Psychiatric A+Ox3, euthymic affect Results & Data Results & Data Laboratory Results . Diagnostic Findings . PG Care Time/CCT Total # of Minutes Spent Total Time Spent with Patient: Total time spent is greater than 50% in coordination of care (as documented) at patient's floor/unit and/or counseling patient: Coding Level of Care Code None Diagnoses Osteoarthritis of left knee M17.12
[2024-10-11] MEDS ORDERED: ePHEDrine sulfate 50 MG/ML AMP IV PRN (07:18)
[2024-10-11] MEDS ORDERED: ONDANSETRON INJ 2 MG/ML 2 ML VIAL IV PRN ×2 (07:18→11:10)
[2024-10-11] MEDS ORDERED: ATROPINE SULFATE 0.1 MG/ML 10ML SYR IV PRN (07:18)
[2024-10-11] MEDS ORDERED: fentaNYL citrate PF 100 MCG/2 ML VIAL IV PRN (07:18)
[2024-10-11] MEDS ORDERED: PROMETHAZINE HCL 6.25 MG in SODIUM CHLORIDE 0.9% 50 ML IV PRN (07:18)
[2024-10-11] MEDS: TRANEXAMIC ACID 1,000 MG **IV Pre-op IV SCH (07:50)
[2024-10-11] MEDS: ceFAZolin 2000MG 2,000 MG/15 ML SYR IV SCH (08:03)
[2024-10-11] MEDS: ROPIV 0.5% 246mg, Ketorolac 30mg, EPINEPHrine 0.5mg in NSS INFIL SCH (08:42)
[2024-10-11] MEDS: ORTHO JOINT ANESTHETIC ONE (08:43)
[2024-10-11] MEDS: TRANEXAMIC ACID 1,000 MG **IV Intra-op IV SCH (09:05)
--- NOTE | 2024-10-11 09:10 | Operative Report ---
PG Post Operative Report Pre & Post Diagnosis Operation Date: 10/11/24 08:00 Pre-Op Diagnosis: Left Knee Osteoarthritis Post-Op Diagnosis: Left Knee Osteoarthritis I identified the patient and participated in the time-out.: Yes Procedure Operation Date: 10/11/24 08:00 Actual Procedures p Left Total Knee Arthroplasty(Left) - Pierce Douglas DO Surgeon Pierce Douglas DO Agricultural Equipment Salesperson Main Coello PA-C Estimated Blood Loss 50 Findings Consistent with Post-Op Diagnosis Specimens Left femoral and tibial bone Description of Procedure Implants used: I used a Daysi Persona total knee arthroplasty system with a size 7 PS narrow femur, D tibia, 28 oval patella, and a size 10 CPS polyethylene bearing. All components were cemented in place with Biomet cement. Olga arrived [facility] for the above procedure. She was seen in the preoperative holding area and the operative extremity was identified and signed. She was given a preoperative antibiotic, TXA, a spinal anesthetic and an adductor nerve block. She was taken back to the operating room and laid on the table in supine position. She was given basic sedation. The operative knee was then prepped and draped in sterile fashion. A timeout was done, and the patient and the operative extremity was properly identified. A midline incision was made directly over the patella. Dissection was taken down to the extensor mechanism. A medial parapatellar arthrotomy was used. The medial retinaculum was released and the fat pad was mostly excised. The knee was flexed and the ACL, PCL, and meniscus were removed. A drill was sent down the center of the femoral canal followed by an intramedullary leonardo. Off that leonardo a distal femoral cutting block was placed. 9 mm was resected off the distal femur at 5 of valgus. A posterior referencing AP sizing guide was then placed on the distal femur. The femur measured to be a size 7. 2 drill holes were placed in 3 of external rotation. A 4-in-1 cutting block was then impacted into place. Anterior, posterior, and chamfer cuts were then made. The proximal tibia was then exposed. An external tibial alignment guide was placed. A tibial cut guide was then anchored in place and the proximal tibia was then resected. The posterior aspect of the knee was then opened up and any additional meniscus fragments and osteophytes were removed. The tibia measured to be a size D. The tibial plate was then placed in the appropriate rotation and the tibia was drilled and punched. Trial components were then placed. I used a size 10 CPS polyethylene insert. The knee was brought through a full range of motion and felt to be stable. The peg holes for the femoral component were then drilled. The patella was then everted and 9 mm was resected off the posterior aspect of the patella. The patella measured to be a size 28 oval. 3 peg holes were then drilled. A trial patella was placed. The knee was once again brought through a full range of motion and felt to be stable. Trial components were then removed. The surrounding soft tissues were injected with 100 cc of an orthopedic pain control cocktail. All components were then cemented into place with Biomet cement. The final polyethylene insert was then snapped into place. Once cement was dry the tourniquet was deflated. H emostasis was obtained. A dilute betadyne lavage was then done for 3 minutes. The joint was then irrigated with normal saline solution. The medial parapatellar arthrotomy was then closed with #1 Vicryl suture. The skin was closed with 2-0 Vicryl, 3-0V lock suture, and larry. A soft compressive dressing was placed. She was then transferred to a hospital bed and taken to the postanesthesia care unit in stable condition. She tolerated the procedure well. Mani Coello PA-C, was present for the entire procedure. He was critical for patient positioning, prepping, draping, retraction exposure, wound closure and application of sterile dressing. I attest to the content of the Intraoperative Record and any orders documented therein. Any exceptions are noted below.
--- NOTE | 2024-10-11 10:01 | XRay Report ---
XR knee LT 1 or 2V routine CLINICAL HISTORY: Surgical Post Op TECHNIQUE: 2 views of the left knee were obtained. Comparison: Comparison is made to knee radiographs 07/24/2013 FINDINGS: Patient is status post total knee arthroplasty with expected postsurgical changes including soft tiss ue swelling and subcutaneous emphysema. No periarticular lucency or hardware fracture is seen. IMPRESSION: Expected postoperative appearance status post placement of total knee arthroplasty. ACT 112: Negative or not required by law. Electronically signed by: Rodo Luciano M.D. 10/11/2024 10:00 AM
[2024-10-11] MEDS ORDERED: traMADol HCL 50 MG TABLET PO PRN (11:10)
[2024-10-11] MEDS ORDERED: METOCLOPRAMIDE HCL INJ 5 MG/ML 2 ML VIAL IV PRN (11:10)
[2024-10-11] MEDS ORDERED: HYDROmorphone INJ 0.5 MG/0.5 ML SYR IV PRN (11:10)
[2024-10-11] MEDS ORDERED: oxyCODONE HCL IR 5 MG TAB (IMMEDIATE RELEASE) PO PRN (11:10)
[2024-10-11] MEDS ORDERED: PHARMACY GLYCEMIC MGMT CONSULT PRN (11:10)
[2024-10-11] MEDS ORDERED: MAGNESIUM HYDROXIDE SUSP 30 ML UDC PO PRN (11:10)
[2024-10-11] MEDS ORDERED: NALOXONE HCL 0.4 MG/1 ML VIAL/CARP IV PRN (11:10)
[2024-10-11] MEDS ORDERED: bisacodyL 10 MG SUPP PR PRN (11:10)
[2024-10-11] MEDS ORDERED: CARBOHYDRATES FOR HYPOGLYCEMIA PO PRN (11:45)
[2024-10-11] MEDS ORDERED: GLUCOSE 40% GEL 15 GM TUBE PO PRN (11:45)
[2024-10-11] MEDS ORDERED: GLUCOSE 10 TAB/TUBE PO PRN (11:45)
[2024-10-11] MEDS ORDERED: GLUCAGON FOR INJ 1 MG VIAL SQ PRN (11:45)
[2024-10-11] MEDS ORDERED: DEXTROSE 50% 50 ML SYRINGE IV PRN (11:45)
--- NOTE | 2024-10-11 11:49 | Anesthesiology Progress Note ---
Date of Service October 11, 2024 Anesthesia Post Procedure Vital Signs Vital Signs: Temp Pulse Resp BP Pulse Ox O2 Del Method O2 Flow Rate 10/11/24 11:30 36.9 C 75 16 119/62 94 Room Air 10/11/24 10:40 69 19 119/57 L 97 Nasal Cannula 2 10/11/24 10:30 36.7 C 69 20 117/59 L 98 Nasal Cannula 2 10/11/24 10:20 68 19 120/54 L 96 Nasal Cannula 2 10/11/24 10:10 72 15 116/55 L 91 Room Air 10/11/24 10:00 70 16 115/58 L 98 Oxymask 5 10/11/24 09:50 71 16 126/59 L 98 Oxymask 5 10/11/24 09:40 77 16 131/73 100 Oxymask 5 10/11/24 09:33 36.8 C 76 13 100/58 L 98 Oxymask 5 10/11/24 07:02 36.9 C 66 20 155/82 H 97 Room Air Pain Intensity Right Knee: Pain Intensity: 1 Transfer of Care Handoff Completed per policy Notes Mental Status: alert / awake / arousable Patient Amnestic to Procedure: Yes Nausea / Vomiting: adequately controlled Pain: adequately controlled Airway Patency, RR, SpO2: stable & adequate BP & HR: stable & adequate Hydration State: stable & adequate Neuraxial Anesthesia: was administered and sensory block is resolving Anesthetic Complications: no major complications apparent and Pt Satisfied with anesthetic care
[2024-10-11] MEDS: KETOROLAC TROMETHAMINE 15 MG/ML VIAL IV SCH (12:38)
[2024-10-11] MEDS: INSULIN ASPART PER UNIT CHARGE SC SCH (12:38)
--- NOTE | 2024-10-11 13:50 | Pharmacy Report ---
Pharmacy Glycemic Short Note 2 - Date of Service October 11, 2024 - Glycemic Short BSG Results (Last 24 hours): 10/11/24 10/11/24 10/11/24 07:02 09:36 11:34 POC Glucose 142 H 174 H 201 H OUTPATIENT ANTIDIABETIC REGIMEN: * Mounjaro 7.5mg QWeek * Insulin glargine 36 units HS * Insulin aspart 14-18 units QAM * A1C 6.2% 09/10/24 ASSESSMENT: * MZ is a 79YOF here postop LTKA. Pharmacy consulted to manage her T2DM. * Pt received 10mg of IV dexamethasone (and possibly another 4mg intra-op). Pt ordered a T2DM diet. BSGs increased this AM and afternoon, added now dose of insulin aspart, overnight checks, and scaled lantus dose with dinner. PLAN FOR INPATIENT GLYCEMIC CONTROL: * Hold outpatient oral diabetes medications * Basal insulin * Lantus scale 30-35 units SQ with dinner * Bolus insulin * NovoLog per scale ACHS or Q6hrs while NPO * Goal Range: Low 110 mg/dL - High 140 mg/dL * Correction Factor: 20 mg/dL/unit * Nutritional / Prandial insulin per carb ratio of 1 unit per 7 grams CHO consumed
[2024-10-11] MEDS: LANTUS PER UNIT CHARGE SC SCH (17:42)
[2024-10-11] MEDS: ceFAZolin 1000MG 1,000 MG/7.5 ML SYR IV SCH (17:42)
[2024-10-11] MEDS: ASPIRIN 81 MG ECTAB PO SCH (20:08)
[2024-10-11] MEDS: ATENOLOL 50 MG TABLET PO SCH (20:08)
[2024-10-11] MEDS: lisinopril 20 MG TAB PO SCH (20:08)
[2024-10-11] MEDS: SIMVASTATIN 20 MG TAB PO SCH (20:09)
[2024-10-11] MEDS: PARoxetine HCL 20 MG TAB PO SCH (20:09)
[2024-10-11] MEDS: DOCUSATE SODIUM 100 MG CAP PO SCH (20:09)
[2024-10-11] MEDS: SENNA 8.6 MG TAB PO SCH (20:09)
[2024-10-11] MEDS ORDERED: NON-FORMULARY MEDICATION (Insulin Glargine [Lantus Solostar U-100 Insulin] 100 unit/mL (3 SQ SCH (21:00)
[2024-10-12] MEDS: INSULIN ASPART PER UNIT CHARGE SC SCH (00:03)
[2024-10-12] MEDS: ALENDRONATE SODIUM 70 MG TAB PO SCH (05:58)
--- NOTE | 2024-10-12 07:36 | Orthopedic Progress Note ---
Date of Service October 12, 2024 Assessment & Plan (1) Status post left knee replacement: Overall she is doing very well. She is not having much pain in the left knee. She will be seen by physical therapy today for ambulation and range of motion exercises. She is on aspirin for DVT prophylaxis. The nursing staff can change her dressing after physical therapy. She can be discharged home later today. She will follow-up with orthopedics in 2 weeks. Luis Eduardo Espinoza was seen and examined at bedside this morning. Overall she is doing very well. She is not having much pain in the left knee. She has been up and ambulating to the bathroom. She has no complaints. Review of Systems All systems reviewed & are unremarkable except as noted in HPI & below. Physical Exam On physical exam of the left knee, the dressing is clean and dry. Her leg is out full extension. She has active dorsiflexion plantarflexion of her left ankle.. Results & Data Results & Data Laboratory Results . Diagnostic Findings Postoperative x-rays of the left knee show the prosthesis to be in anatomic alignment without any evidence of fracture, dislocation, or loosening.. PG Care Time/CCT Total # of Minutes Spent Total Time Spent with Patient: Total time spent is greater than 50% in coordination of care (as documented) at patient's floor/unit and/or counseling patient: Coding Level of Care Code 94508 Post Operative Follow-Up Diagnoses Status post left knee replacement Z96.652
--- NOTE | 2024-10-12 07:38 | Discharge Summary ---
Date of Service October 12, 2024 Admission HPI (Per Admitting) Olga is a pleasant 79-year-old female who has been dealing with chronic increasing left knee pain. X-rays and clinical exam have been diagnostic for advanced arthritis of left knee. After failed conservative treatment, she has elected proceed with a left total knee arthroplasty.. Admission Exam (Per Admitting) On physical exam of the left knee, she has a slight varus deformity. Tenderness palpation of the distal medial femoral condyle.. Principal Diagnosis Same as "Discharge Diagnosis" noted below under Discharge Instructions. Discharge Exam On physical exam of the left knee, the dressing is clean and dry. Her leg is out full extension. She has active dorsiflexion plantarflexion of her left ankle.. Discharge Data Procedures Performed Operation Date: 10/11/24 08:00 Actual Procedures p Left Total Knee Arthroplasty(Left) - Pierce Douglas DO Ordered Studies 10/11/24 05:00 US - OR guided needle placemen Routine Hospital Course (1) Status post left knee replacement: On October 11, 2024 Olga arrived at [facility] and underwent a left knee replacement without complication. She had a spinal anesthetic. Postoperatively she was started on aspirin for DVT prophylaxis and transferred to the general orthopedic floors. Her hospital course was uneventful. On postop day #1, her vital signs were stable and her pain was well-controlled. She was able to participate well with physical therapy doing ambulation and range of motion exercises. She was then discharged to home. She will follow-up with orthopedics in 2 weeks. PG Care Time/CCT Total # of Minutes Spent Total Time Spent with Patient: Total time spent is greater than 50% in coordination of care (as documented) at patient's floor/unit and/or counseling patient: Discharge Plan Discharge Items Patient Disposition: Home - Self-Care Reason For Visit: Left Knee Arthritis Discharge Diagnosis: Left knee replacement Activity: Per Instructions section Non-emergency contact: Surgeon Call non-emergency contact if: your wound has increased redness and your wound has increased drainage Follow-up/Referrals: Patrica Delcid MD [Primary Care Provider] - Diet: Regular Addtl Attending Provider Instructions: Activity and Therapy Recommendations: * If you are using [facility] then therapy will be provided at your home until they feel you have accomplished all of your goals. * If you are using [facility] then Physical Therapy will be provided until they feel you are ready to start Outpatient Physical Therapy. * If you are not using home therapy then Outpatient Physical Therapy should start about 3-5 days from your day of surgery. Therapy will last about 6-10 weeks * It is important not to put a pillow under your knee when you are relaxing or sleeping. It is just as important to make sure you are getting your knee perfectly straight as it is to regain your knee bend. * You were shown a series of exercises in the hospital. Do these exercises three times each day including the exercises you were shown in physical therapy. * Get up and walk several times each day. For the first four weeks, try not to stand or walk for more than one hour at a time. If you do stand or walk for more than one hour, you will not hurt anything, but your leg will likely swell. * As you feel comfortable, you may change from the walker or crutches to a cane and then to independent walking. Medications: * Narcotic You will likely be sent home from the hospital with a prescription for the narcotic pain medication that worked best throughout your stay. * Cefadroxil -take the antibiotic twice a day for 10 days to help prevent infection. * Aspirin Most patients will be required to take Aspirin 81mg twice a day for 6 weeks after surgery. This is obtained [id number] and a prescription is not necessary. * Other medications may be prescribed for specific circumstances. If you have any questions, please call the office at . * Resume previous home medications unless otherwise instructed TEDs/Elastic Stockings: The white elastic stockings help limit swelling and prevent blood clots from forming in your legs.~ The more you wear them, the more they work. Wear them for six weeks. Dressing Care: The dressing can be changed after physical therapy on postop day #1. Daily dry dressing changes for a few days, especially if the incision is still draining some. If the incision is not draining then you may leave the larry open to air. If there is a little bit of drainage or if the larry are getting stuck on your clothing then cover the incision with a dry dressing. The larry will be removed at your 2 week follow-up appointment. Showering: You may shower 5 days from the day of surgery as long as the incision is no longer draining. You may shower with the larry exposed. Let soapy water run over the larry and pat them dry. Do not scrub or soak the incision. Diet: You may resume your previous diet. Things To Watch For: * Drainage from the incision site that occurs more than one week after your surgery. * Increased redness at the incision site. * Fever above 102 degrees Fahrenheit. * Unusual chest pain or shortness of breath. * Call [facility] at with any of the above problems Follow-Up Visit: Follow-up with Dr. Douglas's office 2-3 weeks after your day of surgery. We will remove your larry and answer any questions. If you have any additional questions or concerns, Dr Douglas is usually in the office at the same time and will be available An appointment was probably scheduled when you signed-up for surgery in the office. If you have any questions call Office Instructions: More detailed instructions as well as Frequently Asked Questions were provided in a folder by our office when you signed-up for surgery. Please review these instructions when you get home. If you have any further questions or concerns, please feel free to call the office at [phone] Pending Studies at Discharge: No Stand-Alone Forms: [facility], Smoking Cessation Medications and DC Order Prescriptions: New cefadroxil 500 mg capsule 500 mg PO BID 10 Days Qty: 20 0RF oxycodone 5 mg tablet 5 mg PO Q6H PRN (Reason: pain) Qty: 30 0RF aspirin 81 mg Tablet,Delayed Release (Dr/Ec) 81 mg PO BID 42 Days Qty: 84 0RF Continued docusate sodium [Colace] 100 mg capsule 100 mg PO BID PRN (Reason: Constipation) Patient Comments: CONFIRMED ON [facility] – [place] DC SUMMARY AND W/ PT 06/08 (DME) pen needle, diabetic [BD Ultra-Fine Mini Pen Needle] 31 gauge x 3/16" n eedle See Rx Instructions .Route Qty: 400 3RF Rx Instructions: Use 4 per day simvastatin 20 mg tablet 20 mg PO QPM Qty: 90 3RF Mounjaro 7.5 mg/0.5 mL pen injector 7.5 mg subcut Q7D Qty: 6 3RF (DME) Contour Next Test Strips Strip See Rx Instructions .Route Qty: 100 3RF Rx Instructions: once daily for calibration (DME) lancets [Microlet Lancet] Misc See Rx Instructions .Route Qty: 100 3RF Rx Instructions: test blood sugar once daily insulin glargine [Lantus Solostar U-100 Insulin] 100 unit/mL (3 mL) insulin pen 36 unit SQ HS 90 Days Qty: 45 3RF alendronate [Fosamax] 70 mg tablet 70 mg PO WK Qty: 12 3RF Patient Comments: takes on saturdays calcium carbonate-vitamin D3 600 mg(1,500mg) -200 unit tablet 1 tab PO QAM coenzyme Q10 100 mg capsule 100 mg PO QAM krill oil 500 mg capsule 500 mg PO QAM cholecalciferol (vitamin D3) 5,000 unit tablet 5,000 units PO QAM (DME) Dexcom G6 Sensor Device See Rx Instructions .ROUTE .MEDSUPPLY Qty: 3 Rx Instructions: As directed (DME) Dexcom G6 Family Medicine Physician Assistant Misc See Rx Instructions .ROUTE .MEDSUPPLY Qty: 1 Rx Instructions: As directed (DME) Dexcom G6 Transmitter Device See Rx Instructions .ROUTE .MEDSUPPLY Qty: 1 Rx Instructions: As directed fluocinonide 0.05 % cream 1 applic topical DAILY PRN (Reason: Rash) Dose Instruction: APPLY 1 APPLICATION TO AFFECTED AREA(S) TOPICALLY TWICE DAILY Rx Instructions: APPLY 1 APPLICATION TO AFFECTED AREA(S) TOPICALLY TWICE DAILY PRN; glucosamine-chondroitin 900 mg tablet 900 mg PO QAM paroxetine HCl [Paxil] 20 mg tablet 20 mg PO HS oxybutynin chloride 5 mg tablet extended release 24hr 5 mg PO QAM atenolol 50 mg tablet 50 mg PO HS insulin lispro [Humalog KwikPen Insulin] 100 unit/mL insulin pen 14 - 18 unit SQ QAM cyanocobalamin (vitamin B-12) [Vitamin B-12] 1,000 mcg Tablet 1,000 mcg PO QAM ascorbic acid (vitamin C) [Vitamin C] 500 mg Tablet 1,000 mg PO QAM lisinopril 20 mg Tablet 20 mg PO QPM Discharge Orders: Discharge Order (Routine); Ordered 10/12/24 Ordered By: Pierce Douglas Admission Data Admit Date/Time: 10/11/24 09:36 Attending Provider: Pierce Douglas Admit Provider: Pierce Douglas Primary Care Provider: Patrica Delcid
[2024-10-12] MEDS: OXYBUTYNIN CHLORIDE XL 5 MG TABCR PO SCH (08:04)
[2024-10-12] MEDS: MULTIVITAMIN TAB PO SCH (08:04)
[2024-10-12] MEDS ORDERED: NON-FORMULARY MEDICATION (Insulin Lispro [Humalog Kwikpen Insulin] 100 unit/mL insulin pen SQ SCH (09:00)
[2024-10-12] MEDS ORDERED: LANTUS PER UNIT CHARGE SC ONE (10:00)
[2024-10-12 11:44] VITALS: RESP 18; TEMP 98.6; O2SAT 95
[2024-10-12 13:23] VITALS: BP 129/81; PULSE 84
== END 2024-10-12 13:22 | disposition home or self-care (01) ==
LOC: ASU 06:36 → 3W 06:36

== ENCOUNTER 2025-05-30 09:18 | Observation (INO) ==
--- NOTE | 2025-04-30 15:38 | PAT Medication Instructions ---
Medication Instructions Date of Service April 30, 2025 Home Medications Medication Instructions Recorded blood sugar diagnostic (Contour #100 ea 05/02/24 Next Test Strips) lancets (Microlet Lancet) #100 ea 05/02/24 tirzepatide 10 mg/0.5 mL 10 mg (0.5 mL) subcut Q7D #6 mL 12/17/24 subcutaneous pen injector simvastatin 20 mg tablet 20 mg PO QPM #90 tabs 02/07/25 pen needle, diabetic 31 gauge x #400 ea 04/03/2512/08" calcium 600 mg (as carbonate)-vitamin D3 5 mcg (200 unit) tablet 1 tab PO QAM cholecalciferol (vitamin D3) 125 mcg (5,000 unit) tablet 5,000 units PO QAM coenzyme Q10 100 mg capsule 100 mg PO QAM krill oil 500 mg capsule 500 mg PO QAM docusate sodium 100 mg capsule (Colace) 100 mg PO BID PRN Constipation fluocinonide 0.05 % topical cream 1 applic topical DAILY PRN Rash antiarthritic combination no.2 900 mg tablet (glucosamine-chondroitin) 900 mg PO QAM ascorbic acid (vitamin C) 500 mg tablet (Vitamin C) 1,000 mg PO QAM PRN Cold Symptoms cyanocobalamin (vitamin B-12) 1,000 mcg tablet (Vitamin B-12) 1,000 mcg PO QAM insulin lispro 100 unit/mL subcutaneous pen (Humalog KwikPen (U-100) Insulin) 14 - 18 unit subcut QAM insulin glargine 100 unit/mL (3 mL) subcutaneous pen (Lantus Solostar U-100 Insulin) 32 unit subcut HS tirzepatide 10 mg/0.5 mL subcutaneous pen injector 10 mg (0.5 mL) subcut Q7D simvastatin 20 mg tablet 20 mg PO QPM alendronate 70 mg tablet (Fosamax) 70 mg PO Q7D atenolol 50 mg tablet 50 mg PO HS lisinopril 20 mg tablet 20 mg PO HS oxybutynin chloride 5 mg tablet,extended release 24 hr 5 mg PO QAM paroxetine HCl 20 mg tablet 20 mg PO QAM Continue as directed alendronate 70 mg tablet (Fosamax) 70 mg PO Q7D (unless surgeon directed otherwise; also do NOT take morning of surgery) STOP taking 2 weeks before surgery coenzyme Q10 100 mg capsule 100 mg PO QAM krill oil 500 mg capsule 500 mg PO QAM antiarthritic combination no.2 900 mg tablet (glucosamine-chondroitin) 900 mg PO QAM STOP taking at least 7 days before surgery tirzepatide 10 mg/0.5 mL subcutaneous pen injector 10 mg (0.5 mL) subcut Q7D STOP taking 24 hours before surgery fluocinonide 0.05 % topical cream 1 applic topical DAILY PRN Rash DO NOT take the morning of surgery calcium 600 mg (as carbonate)-vitamin D3 5 mcg (200 unit) tablet 1 tab PO QAM cholecalciferol (vitamin D3) 125 mcg (5,000 unit) tablet 5,000 units PO QAM docusate sodium 100 mg capsule (Colace) 100 mg PO BID PRN Constipation ascorbic acid (vitamin C) 500 mg tablet (Vitamin C) 1,000 mg PO QAM PRN Cold Symptoms cyanocobalamin (vitamin B-12) 1,000 mcg tablet (Vitamin B-12) 1,000 mcg PO QAM insulin lispro 100 unit/mL subcutaneous pen (Humalog KwikPen (U-100) Insulin) 14 - 18 unit subcut QAM oxybutynin chloride 5 mg tablet,extended release 24 hr 5 mg PO QAM Take morning of surgery With a small sip of water, OTHERWISE NOTHING TO EAT OR DRINK AFTER MIDNIGHT: paroxetine HCl 20 mg tablet 20 mg PO QAM Take evening before surgery docusate sodium 100 mg capsule (Colace) 100 mg PO BID PRN Constipation (if needed) insulin glargine 100 unit/mL (3 mL) subcutaneous pen (Lantus Solostar U-100 Insulin) 32 unit subcut HS simvastatin 20 mg tablet 20 mg PO QPM atenolol 50 mg tablet 50 mg PO HS lisinopril 20 mg tablet 20 mg PO HS Other Notes If you have any questions please call us at [phone] or [phone] or [phone] or [phone]
--- NOTE | 2025-05-06 14:44 | Anesthesiology Consultation ---
Date of Service May 06, 2025 Assessment & Plan (1) Encounter for pre-operative examination: Chart Review Chart Review: Acceptable Risk for Surgery and Patient seen in Pre Admission Testing - Check BSG AM DOS Dexcom monitor to abdominal area (surgeon's office made aware) - Patient informed to stop Mounjaro 7 days prior to surgery. Last dose of Mounjaro scheduled 05/18/25. Will be off Mounjaro x 12 days prior to DOS on 05/30/25 - Patient not an ideal OPJ candidate due to patient wanting to stay overnight per surgeon's office (scheduled as 23 hour obs) Per PAT appt on 05/06/25, no recent illness/disease exposures, illness related symptoms, or recent illness/disease positive tests. Will leave to surgeon's discretion if preop Covid testing needed Left TKA 10/11/24= Done under SAB at L3-4 with 1 attempt Teaching & Discussion Pre-Anesthesia Teaching/Discussion Notes: Instructed NPO after midnight before surgery,except medications with 15 cc of water. Medication instructions provided according to the PAT guidelines. History Surgery Operation Date: 05/30/25 07:00 Proposed Procedures p Robotic Assisted Right Total Knee Arthroplasty - Pierce Douglas, DO Height/Weight Height: 5 ft 6 in Weight: 75.3 kg Allergies Allergy/AdvReac Type Severity Reaction Status Date / Time acarbose Allergy Intermediate Hives Verified 04/30/25 12:18 niacin Allergy Intermediate HIVES Verified 04/30/25 12:18 adhesive Allergy Mild ITCHING/ARNULFO Verified 04/30/25 12:18 H pollen extracts Allergy Mild sneezing, Verified 04/30/25 12:18 watery eyes Medications Home Medications Medication Instructions Recorded Confirmed Last Taken calcium 600 mg (as 1 tab PO QAM 06/05/19 04/30/25 09/27/24 carbonate)-vitamin D3 5 mcg (200 unit) tablet cholecalciferol (vitamin D3) 125 5,000 units PO QAM 06/05/19 04/30/25 10/10/24 mcg (5,000 unit) tablet coenzyme Q10 100 mg capsule 100 mg PO QAM 06/05/19 04/30/25 09/27/24 krill oil 500 mg capsule 500 mg PO QAM 06/05/19 04/30/25 09/27/24 blood-glucose sensor (Dexcom G6 #3 ea 03/18/21 03/19/25 Unknown Sensor device) blood-glucose transmitter (Dexcom #1 ea 03/18/21 03/19/25 Unknown G6 Transmitter device) blood-glucose,tourist agent,cont #1 ea 03/18/21 03/19/25 Unknown (Dexcom G6 Pricing Director) docusate sodium 100 mg capsule 100 mg PO BID PRN Constipation 06/08/23 04/30/25 Unknown (Colace) fluocinonide 0.05 % topical cream 1 applic topical DAILY PRN Rash 02/09/24 04/30/25 Unknown blood sugar diagnostic (Contour #100 ea 05/02/24 03/19/25 Unknown Next Test Strips) lancets (Microlet Lancet) #100 ea 05/02/24 03/19/25 Unknown antiarthritic combination no.2 900 900 mg PO QAM 06/04/24 04/30/25 09/27/24 mg tablet (glucosamine-chondroitin) ascorbic acid (vitamin C) 500 mg 1,000 mg PO QAM PRN Cold Symptoms 09/02/24 04/30/25 10/09/24 tablet (Vitamin C) cyanocobalamin (vitamin B-12) 1,000 mcg PO QAM 09/02/24 04/30/25 09/27/24 1,000 mcg tablet (Vitamin B-12) insulin lispro 100 unit/mL 14 - 18 unit subcut QAM 09/02/24 04/30/25 10/10/24 16:00 subcutaneous pen (Humalog KwikPen 18 units (U-100) Insulin) insulin glargine 100 unit/mL (3 32 unit subcut 12/17/24 04/30/25 Unknown mL) subcutaneous pen (Lantus Solostar U-100 Insulin) simvastatin 20 mg tablet 20 mg PO QPM #90 tabs 02/07/25 04/30/25 Unknown pen needle, diabetic 31 gauge x #400 ea 04/03/25 Unknown 12/08" alendronate 70 mg tablet (Fosamax) 70 mg PO Q7D 04/30/25 04/30/25 Unknown atenolol 50 mg tablet 50 mg PO HS 04/30/25 04/30/25 Unknown lisinopril 20 mg tablet 20 mg PO HS 04/30/25 04/30/25 Unknown oxybutynin chloride 5 mg 5 mg PO QAM 04/30/25 04/30/25 Unknown tablet,extended release 24 hr paroxetine HCl 20 mg tablet 20 mg PO QAM 04/30/25 04/30/25 Unknown tirzepatide 10 mg/0.5 mL 10 mg (0.5 mL) subcut Q7D #6 mL 05/01/25 Unknown subcutaneous pen injector Past Medical History Medical History Agoraphobia without panic disorder well controlled with Paxil Cerebral vascular disease Chronic small vessel disease per 2022 work up and neuro vascular evaluation - follows with neuro PRN; no definite CVA - on ASA Dyslipidemia Hearing loss No hearing aids History of hypertension Hx of osteopenia Obstructive sleep apnea CPAP Overactive bladder Type 2 diabetes mellitus IDDM Exercise / Class Metabolic Activity II 4-5 Yardwork/Stairs/Walk up hill (one flight of stairs - no chest pain or SOB ) Past Family History Family History Father Seasonal allergies Heart disease Myocardial infarction Mother Liver disease Diabetes Osteoporosis Arthritis Hyperlipidemia Hypothyroidism Hypertension Obesity Sister Arthritis Brother Diabetes Peripheral vascular disease Daughter Family history of reaction to anesthesia vomiting and confusion Other Gestational diabetes Denies family history of Ovarian cancer Prostate cancer Breast cancer Colorectal cancer Past Surgical History Surgical History H/O hand surgery incision tendon sheath of a finger History of bilateral cataract extraction History of breast biopsy benign History of carpal tunnel release of both wrists History of knee surgery bilateral knees--meniscus repair History of laparoscopic appendectomy (08/23/22) Laparoscopic Appendectomy(Not Applicable) - Juan Harrington, DO History of tooth extraction partial upper History of total left knee replacement (TKR) Hx of colonoscopy Status post trigger finger release x3 Past Anesthesia History No Hx of Anesthesia Complications and No Family Hx of Anesthesia Complications (with exception to daughter - PONV ) History of PONV No Hx of PONV and No Hx of Motion Sickness Social History Smoking Status: Never smoker Do You Dip or Chew Tobacco: No Hx Alcohol Use: Yes alcohol intake frequency: holidays/special occasions only Hx Substance Use: No substance use type: does not use Review of Systems Patient denies chest pain, shortness of breath, dyspnea on exertion, reflux, cough, wheezing, palpitations. No hx of seizures, stroke, [place]. No hx of blood clots or blood transfusions Physical Exam Vital Signs VITALS BP 115/60 P 71 TEMP 97.7 SP02 98% RESP 16 Constitutional no acute distress ENMT Mouth: + small oral opening; no TMJ clicking Thyromental Distance: > or= 3.5 Finger Breadths (3.5) Mallampati Class: III Upper partial denture Neck + limited neck extension Respiratory normal respiratory effort; no respiratory distress Auscultation: lungs clear to auscultation bilaterally; no wheezes Cardiovascular Rate/Rhythm: regular rate and regular rhythm Heart Sounds: no murmur Vessels: no carotid bruit Musculoskeletal Spine: + pain with cervical ROM (mild) Extremities: extremities normal to inspection Psychiatric Orientation: alert Lab Results Anesthesia Preop Results Results Anesthesia Widget: WBC 7.06 K/ul (4.8-10.8) 05/06/25 Hgb 13.2 g/dl (12.0-16.0) 05/06/25 Hct 38.8 % (37.0-47.0) 05/06/25 Plt 202 K/uL (130-400) 05/06/25 Na 137 mmol/L (136-145) 05/06/25 K 4.2 mmol/L (3.5-5.1) 05/06/25 Cl 101 mmol/L (98-107) 05/06/25 CO2 28 mmol/L (21-32) 05/06/25 BUN 17 mg/dl (6-23) 05/06/25 Creat 0.70 mg/dl (0.6-1.2) 05/06/25 Glucose Level 152 mg/dl (70-99(Fasting)) H 05/06/25 PT 11.1 Seconds (9.0-12.0) 05/06/25 PTT 27 Seconds (21-31) 05/06/25 INR 1.0 (0.9-1.1) 05/06/25 HA1c 6.3 % (4.5-5.6) H 05/06/25 Blood Type A Positive 05/06/25 Antibody Screen NEGATIVE 05/06/25 Testing Electrocardiogram Date: 09/10/24 Findings: + NSR @ (70bpm) Normal EKG per cardio Chest X-Ray Date: 07/05/24 Findings: + NAD FINDINGS: PA and lateral chest radiographs are correlated with chest CT dated 06/03/2023. The cardiomediastinal silhouette is unremarkable noting atherosclerotic calcification of the thoracic aorta. Chronic interstitial thickening is similar to previous. There is bibasilar scarring/atelectasis. No airspace consolidation or pleural effusion is identified. There is no pneumothorax. The skeletal structures are osteopenic. There are chronic/healed right-sided rib fractures. Degenerative change is noted in the shoulders and spine Echocardiogram Date: 06/05/23 EF: 50-54% LV Function: normal RWMA: + none ((by limited analysis- all LV segments are not well visualized) ) Other Findings: + diastolic dysfunction (Grade I ) Valvular Disease: + no significant valvular disease ((although heart valves not well visualized)) RV cavity size is normal. RVSP is qualitatively normal Other Testing MRI of the Brain 06/06/23= Moderate generalized age related cerebral parenchymal atrophy and findings most consistent with moderate chronic small vessel white matter ischemia changes. No additional intracranial abnormalities identified. Vascular Duplex Carotid Bilaterally 06/05/23= <50% stenosis to bilateral ICAs. Antegrade flow to both vertebral arteries
[~2025-05-30 09:18] MED LIST changes: -BUPIVACAINE 0.25% PF 30 ML VIAL ONE; -BUPIVACAINE 0.5 % 5 MG/1 ML PF 10ML VIAL ONE; -DEXAMETHASONE SOD INJ 4 MG/ML VIAL ONE; -EPINEPHrine INJ 1 MG/ML AMP ONE; +ROPIVACAINE 0.5% 5 MG/ML 30 ML VIAL ONE
[2025-05-30] MEDS: FAMOTIDINE 20 MG TAB PO SCH (09:38)
[2025-05-30] MEDS: GABAPENTIN 300 MG CAP PO SCH (09:38)
[2025-05-30] MEDS: ACETAMINOPHEN 500 MG TAB PO SCH ×2 (09:38→21:23)
[2025-05-30] MEDS: dexAMETHasone**PF** 10 MG/ML VIAL IV SCH (10:01)
[2025-05-30] MEDS: LR 500ML BOLUS, THEN 15ML/HR IV SCH (10:01)
[2025-05-30] MEDS ORDERED: ONDANSETRON INJ 2 MG/ML 2 ML VIAL ONE ×2 (10:02→13:22)
[2025-05-30] MEDS ORDERED: MIDAZOLAM HCL 1 MG/ML 2ML VIAL ONE ×2 (10:02)
[2025-05-30] MEDS ORDERED: PROPOFOL IV EMULSION 10 MG/ML 20 ML VIAL IV ONE (10:02)
[2025-05-30] MEDS ORDERED: LIDOCAINE 2% 2 ML VIAL/AMP(20MG/ML) INFIL ONE (10:02)
[2025-05-30] MEDS: LR 60ML/HR IV SCH (10:43)
--- NOTE | 2025-05-30 11:12 | History & Physical Bridge Note ---
Date of Service May 30, 2025 History & Physical Bridge Note I have examined the patient, reviewed the History & Physical and in the interval since the performance of the History & Physical I have noted the following changes of clinical significance: no changes noted
[2025-05-30] MEDS: TRANEXAMIC ACID 1,000 MG **IV Pre-op IV SCH (11:48)
[2025-05-30] MEDS ORDERED: ePHEDrine sulfate 50 MG/5 ML SYR ONE (12:27)
[2025-05-30] MEDS ORDERED: PHENYLEPHRINE 100MCG/ML 5ML SYR ONE (12:27)
[2025-05-30] MEDS: ORTHO JOINT ANESTHETIC ONE (12:58)
[2025-05-30] MEDS: ROPIV 0.5% 246mg, Ketorolac 30mg, EPINEPHrine 0.5mg in NSS INFIL SCH (12:58)
[2025-05-30] MEDS ORDERED: KETOROLAC 30 MG/ML VIAL ONE (13:23)
--- NOTE | 2025-05-30 13:45 | Operative Report ---
PG Post Operative Report Pre & Post Diagnosis Operation Date: 05/30/25 11:00 Pre-Op Diagnosis: Right Knee Arthritis Post-Op Diagnosis: Right Knee Arthritis I identified the patient and participated in the time-out.: Yes Procedure Operation Date: 05/30/25 11:00 Actual Procedures p Robotic Right Total Knee Arthroplasty(Right) - Pierce Douglas DO Surgeon Pierce Douglas DO Accounts Payable Administrator Mani Coello PA-C Estimated Blood Loss 30 Findings Consistent with Post-Op Diagnosis Specimens Right femoral and tibial bone Description of Procedure Implants used: I used a [employer] Persona total knee arthroplasty system with a size 7 PS narrow femur, D tibia, 28 oval patella, and a size 12 CPS polyethylene bearing. All components were cemented in place with Biomet cement. Olga arrived [facility] for the above procedure. She was seen in the preoperative holding area and the operative extremity was identified and signed. She was given a preoperative antibiotic, TXA, a spinal anesthetic and an adductor nerve block. She was taken back to the operating room and laid on the table in supine position. She was given basic sedation. The operative knee was then prepped and draped in sterile fashion. A timeout was done, and the patient and the operative extremity was properly identified. A midline incision was made directly over the patella. Dissection was taken down to the extensor mechanism. A medial parapatellar arthrotomy was used. The medial retinaculum was released and the fat pad was mostly excised. The knee was flexed and the ACL, PCL, and meniscus were removed. The alignment of the knee replacement was assisted with a Stylefinch robotic knee. The femoral array was pinned in the distal femur and the tibial array was pinned using a percutaneous technique in the upper shaft of the tibia. The robot was appropriately calibrated and the structure of the knee was mapped out. The components were then manipulated on the screen to account for any malalignment and to assist in gap balancing. Once I was happy with the placement of the components on the screen, a distal femoral cutting guide was brought in place. The distal femur was then resected. The femur measured to be a size 7. A 4-in-1 cutting block was then put into place by the robot and 2 peg holes were drilled. The 4-in-1 cutting block was then impacted into place and anterior, posterior, and chamfer cuts were made. The cutting block was then brought down to the tibia and pinned into place. The proximal tibia was then resected. The posterior aspect of the knee was then opened up and any additional meniscus fragments and osteophytes were removed. The tibia measured to be a size D. The tibial plate was then placed in the appropriate rotation and the tibia was drilled and punched. Trial components were then placed. The patella was then everted and 9 mm was resected off the posterior aspect of the patella. The patella measured to be a size 28 oval. 3 peg holes were then drilled. A trial patella was placed. A size 12 CPS polyethylene insert was then trialed. The knee was brought through a full range of motion and felt to be stable. Trial components were then removed. The surrounding soft tissues were injected with 100 cc of an orthopedic pain control cocktail. All components were then cemented into place with Biomet cement. The final polyethylene insert was then snapped into place. Once cement was dry the tourniquet was deflated. Hemostasis was obtained. A dilute betadyne lavage was then done for 3 minutes. The joint was then irrigated with normal saline solution. The medial parapatellar arthrotomy was then closed with #1 Vicryl suture. The skin was closed with 2-0 Vicryl, 3-0V lock suture, and Whit Zipline. A soft compressive dressing was placed. She was then transferred to a hospital bed and taken to the postanesthesia care unit in stable condition. She tolerated the procedure well. Mani Coello PA-C, was present for the entire procedure. He was critical for patient positioning, prepping, draping, retraction exposure, wound closure and application of sterile dressing. I attest to the content of the Intraoperative Record and any orders documented therein. Any exceptions are noted below.
--- NOTE | 2025-05-30 14:12 | Anesthesiology Progress Note ---
Date of Service May 30, 2025 Anesthesia Post Procedure Vital Signs Vital Signs: Temp Pulse Resp BP Pulse Ox O2 Del Method O2 Flow Rate 05/30/25 14:05 83 16 137/59 L 96 Room Air 05/30/25 13:55 36.4 C L 91 H 14 121/58 L 98 Oxymask 5 05/30/25 09:17 36.9 C 58 L 20 133/73 100 Room Air Transfer of Care Handoff Completed per policy Notes Mental Status: alert / awake / arousable and participated in evaluation Patient Amnestic to Procedure: Yes Nausea / Vomiting: adequately controlled Pain: adequately controlled Airway Patency, RR, SpO2: stable & adequate BP & HR: stable & adequate Hydration State: stable & adequate Anesthetic Complications: no major complications apparent and Pt Satisfied with anesthetic care
--- NOTE | 2025-05-30 14:29 | XRay Report ---
XR knee RT 1 or 2V routine CLINICAL HISTORY: Surgical Post Op COMPARISON: None pertinent FINDINGS: AP and crosstable lateral views of the right knee demonstrate a total knee arthroplasty wi th satisfactory positioning and alignment of the prosthetic components. There are small osseous hina s at the joint No laterally on the frontal projection. They cannot be seen on the lateral view. Postsurgical changes are present in the soft tissues. IMPRESSION: Satisfactory postop appearance of the prosthetic components of a knee replacement procedu re. Small lateral osseous bodies at the joint line of uncertain significance. ACT 112: Negative or not required by law. Electronically signed by: Gabrielle Jiménez M.D. 05/30/2025 2:27 PM
[2025-05-30] MEDS ORDERED: METOCLOPRAMIDE HCL INJ 5 MG/ML 2 ML VIAL IV PRN (14:42)
[2025-05-30] MEDS ORDERED: HYDROmorphone INJ 0.5 MG/0.5 ML SYR IV PRN (14:42)
[2025-05-30] MEDS ORDERED: MAGNESIUM HYDROXIDE SUSP 30 ML UDC PO PRN (14:42)
[2025-05-30] MEDS ORDERED: NALOXONE HCL 0.4 MG/1 ML VIAL/CARP IV PRN (14:42)
[2025-05-30] MEDS ORDERED: ONDANSETRON INJ 2 MG/ML 2 ML VIAL IV PRN (14:42)
[2025-05-30] MEDS ORDERED: PHARMACY GLYCEMIC MGMT CONSULT PRN (14:42)
[2025-05-30] MEDS: SODIUM CHLORIDE 0.9% 1,000 ML IV SCH (15:04)
[2025-05-30] MEDS: NON-FORMULARY MEDICATION (Tirzepatide 10 mg/0.5 mL pen injector) SQ SCH (15:08)
[2025-05-30] MEDS ORDERED: INSULIN ASPART 100 UNITS/ML 3 ML PEN SC SCH (16:30)
[2025-05-30] MEDS: LANTUS PER UNIT CHARGE SC ONE ×2 (17:34→21:25)
[2025-05-30] MEDS: INSULIN ASPART PER UNIT CHARGE SC SCH (17:35)
[2025-05-30] MEDS: KETOROLAC TROMETHAMINE 15 MG/ML VIAL IV SCH (18:32)
[2025-05-30] MEDS: ASPIRIN 81 MG ECTAB PO SCH (20:42)
[2025-05-30] MEDS: ATENOLOL 50 MG TABLET PO SCH (20:42)
[2025-05-30] MEDS: DOCUSATE SODIUM 100 MG CAP PO SCH (20:42)
[2025-05-30] MEDS: SENNA 8.6 MG TAB PO SCH (20:43)
[2025-05-30] MEDS: SIMVASTATIN 20 MG TAB PO SCH (20:43)
[2025-05-30] MEDS ORDERED: NON-FORMULARY MEDICATION (Insulin Glargine [Lantus Solostar U-100 Insulin] 100 unit/mL (3 SQ SCH (21:00)
[2025-05-31 04:16] VITALS: RESP 18
[2025-05-31] MEDS: ALENDRONATE SODIUM 70 MG TAB PO SCH (06:10)
[2025-05-31] MEDS: OXYBUTYNIN CHLORIDE XL 5 MG TABCR PO SCH (08:09)
[2025-05-31] MEDS: MULTIVITAMIN TAB PO SCH (08:11)
[2025-05-31 08:38] VITALS: BP 105/50; PULSE 73; TEMP 98.1; O2SAT 93
--- NOTE | 2025-05-31 08:42 | Orthopedic Progress Note ---
Date of Service May 31, 2025 Assessment & Plan (1) Status post right knee replacement: Overall she is doing very well. She is not having much pain in the right knee. She will be seen by physical therapy today for ambulation and range of motion exercises. The nursing staff can change her dressing after physical therapy. She is on aspirin for DVT prophylaxis. She can be discharged to home later today. She will follow with orthopedics in 2 weeks. Luis Eduardo Espinoza was seen and examined at bedside this morning. Overall she is doing very well. She is not having much pain in the right knee. She has been up and ambulating to the bathroom. She has no complaints.. Review of Systems All systems reviewed & are unremarkable except as noted in HPI & below. Physical Exam On physical exam of the right knee, the dressing is clean and dry. Her leg is on full extension. She has active dorsiflexion and plantarflexion of her right ankle.. Results & Data Results & Data Laboratory Results . Diagnostic Findings Postoperative x-rays of the right knee show the prosthesis to be in anatomic alignment without any evidence of fracture, dislocation, or loosening.. PG Care Time/CCT Total # of Minutes Spent Total Time Spent with Patient: Total time spent is greater than 50% in coordination of care (as documented) at patient's floor/unit and/or counseling patient: Coding Level of Care Code 97433 Post Operative Follow-Up Diagnoses Status post right knee replacement Z96.651
== END 2025-05-31 11:55 | disposition home or self-care (01) ==
LOC: 3N 09:18 → ASU 09:18